=== PATIENT | female | born 1975 | race Caucasian/White ===

== ENCOUNTER → 2020-08-26 | Outpatient (CLI) | payer OTHER ==
[~2020-08-26] MED LIST: ALBU17IN2 INH; ALBU17IN2 PO; ALLE10TA12 PO; CELE20TA PO; EFFE75CA2 PO; PEPC1TAB5 PO; PROHANCE 279.3MG/ML 15ML VIAL As Ordered ONE; PROHANCE 279.3MG/ML 5ML VIAL As Ordered ONE
--- NOTE | 2020-08-29 09:20 | REP ---
INDICATION: ABNORMAL FINDING ON DX IMAGING OF LIVER AND BILIARY TRACT. Increasing liver lesion. Compare ultrasound [facility]. COMPARISON: Comparison sonography [facility] dated January 26, 2019 showed a 2.5 cm hypervascular lesion in the right lobe of the liver consistent with a hemangioma.. TECHNIQUE: Axial and coronal images are acquired. Sequences include spin echo, fast spin echo, diffusion, gradient echo, in and out of phase, and dynamically acquired sequential postcontrast images. Gadolinium enhancement dose is 18 mL of intravenous ProHance. FINDINGS: Initial precontrast T2 weighted scans demonstrate a central right lobe T2 hyperintense hepatic mass lesion measuring 2.7 cm craniocaudal by 2.4 cm right to left by 2.0 cm anteroposterior. This corresponds to the hyperechoic lesion identified on the ultrasound from January 26, 2019. It does not appear to be changed in size. This lesion shows T1 hypointensity. On dynamically acquired sequential postcontrast enhanced images there is a typical pattern of discontinuous early peripheral enhancement in the lesion. The lesion fills in with contrast enhancement on later images. There is also a tiny subcentimeter T2 hyperintense lesion in the right lobe anteriorly 7 mm in diameter and consistent with a cyst. This does not enhance. No other focal liver lesion is seen. No splenic, pancreatic, or renal lesion is observed. Normal adrenal glands are observed. There is no evidence of cholelithiasis. IMPRESSION: Stable benign right hepatic hemangioma. Tiny right lobe hepatic cyst. Otherwise negative. <Electronically signed by Hansel King > 08/29/20 [id number]
== END ==
LOC: M RAD 12:32
PROVIDERS: ATTEND Internal Medicine Gastroenterology
DX: R93.2 Abnormal findings on diagnostic imaging of liver and biliary tract (principal)
CPT/HCPCS: 74183; A9576

== ENCOUNTER → 2020-09-10 | Outpatient (CLI) | payer OTHER ==
[~2020-09-10] MED LIST changes: -PROHANCE 279.3MG/ML 15ML VIAL As Ordered ONE; -PROHANCE 279.3MG/ML 5ML VIAL As Ordered ONE
--- NOTE | 2020-09-10 12:07 | REP ---
INDICATION: OTHER SPECIFIED DISEASES OF GALLBLADDER. COMPARISON: None. TECHNIQUE/RADIOTRACER AND DOSE: Radionuclide biliary scan followed by gallbladder ejection fraction. FINDINGS: After intravenous infusion of 6.1 mCi of technetium labeled mebrofenin imaging of the liver and biliary ducts is performed at 5 minutes intervals for 1 hour. There is gallbladder and common biliary duct labeling at 15 minutes. There is normal hepatic washout. Following this the patient is asked to ingest 8 oz of Ensure Enlive. After this an additional 60 minutes of dynamic imaging is performed at 2 minute intervals. At 60 minutes the ejection fraction is 60%. Normal ejection fraction is a value greater than 35%. IMPRESSION: There is no evidence of cystic duct or common biliary duct obstruction on the biliary scan. There is a normal gallbladder ejection fraction. <Electronically signed by Nathaniel Faust > 09/10/20 [id number]
== END ==
LOC: M RAD 07:49
PROVIDERS: ATTEND Internal Medicine Gastroenterology
DX: K82.8 Other specified diseases of gallbladder (principal)
CPT/HCPCS: 78227; A9537

== ENCOUNTER → 2020-10-26 | Outpatient (CLI) | payer OTHER ==
[~2020-10-26] MED LIST changes: +HYDR25TAB PO; +LORA-674 PO; +PANT40TA29 PO; +VENL37.598 PO
== END ==
LOC: M LABSMTC 10:21
PROVIDERS: ATTEND Anesthesiology
DX: Z01.812 Encounter for preprocedural laboratory examination (principal); Z20.822 Contact with and (suspected) exposure to COVID-19

== ENCOUNTER 2020-10-31 12:39 | Day surgery (SDC) | payer OTHER ==
[~2020-10-31] VITALS: Ht 175.3 cm; Wt 92.6 kg
[~2020-10-31 12:39] MED LIST changes: +NS 1,000 ML IV ONE
[2020-10-31] MEDS ORDERED: fentaNYL 100 MCG/2 ML INJECTION (J3010) As Ordered ONE (15:20)
[2020-10-31] MEDS ORDERED: propofoL 200 MG/20 ML VIAL As Ordered ONE (15:20)
[2020-10-31] MEDS ORDERED: LIDOCAINE 2% 100MG/5ML SDV (FOR ANES.) As Ordered ONE (15:20)
--- NOTE | 2020-10-31 15:37 | ROOR ---
Patient Name: Asha Brewer Procedure Date: 10/31/2020 3:15 PM Date of : 1975 Age: 45 Room: [facility] Gender: Female Note Status: Finalized Procedure: Upper GI endoscopy Indications: Dyspepsia, Nausea with vomiting Providers: Alonso MIKE MD Referring MD: Anna Kat Md Requesting Provider: Medicines: Monitored Anesthesia Care Complications: No immediate complications. Procedure: Pre-Anesthesia Assessment: - The heart rate, respiratory rate, oxygen saturations, blood pressure, adequacy of pulmonary ventilation, and response to care were monitored throughout the procedure. The Endoscope was introduced through the mouth, and advanced to the second part of duodenum. The upper GI endoscopy was accomplished without difficulty. The patient tolerated the procedure well. Findings: Very small (insignificant) Hiatal Hernia. The esophagus was normal. The stomach was normal. The examined duodenum was normal. Impression: - Normal esophagus. - Normal stomach. Very small (insignificant) Hiatal Hernia. - Normal examined duodenum. - No specimens collected. Recommendation: - Observe patient's clinical course. - Continue present medications. Procedure Code(s): --- Professional --- 01378, Esophagogastroduodenoscopy, flexible, transoral; diagnostic, including collection of specimen(s) by brushing or washing, when performed (separate procedure) Diagnosis Code(s): --- Professional --- R11.2, Nausea with vomiting, unspecified R10.13, Epigastric pain CPT copyright 2019 [employer]. All rights reserved. The codes documented in this report are preliminary and upon clinical reviewer review may be revised to meet current compliance requirements. Alonso Mike MD Alonso MIKE MD 10/31/2020 3:37:31 PM Electronically signed by Alonso MIKE MD Number of Addenda: 0 Note Initiated On: 10/31/2020 3:15 PM Estimated Blood Loss: Estimated blood loss: none.
[2020-10-31 15:55] VITALS: BP 137/88
== END 2020-10-31 16:02 | disposition home or self-care (01) ==
LOC: M OPP 12:39
PROVIDERS: ATTEND Internal Medicine Gastroenterology
DX: R10.13 Epigastric pain (principal); R11.2 Nausea with vomiting, unspecified; K44.9 Diaphragmatic hernia without obstruction or gangrene; I10 Essential (primary) hypertension; F41.9 Anxiety disorder, unspecified; F17.210 Nicotine dependence, cigarettes, uncomplicated; K27.9 Peptic ulcer, site unspecified, unspecified as acute or chronic, without hemorrhage or perforation; Z79.899 Other long term (current) drug therapy; Z80.3 Family history of malignant neoplasm of breast; Z80.0 Family history of malignant neoplasm of digestive organs; Z82.49 Family history of ischemic heart disease and other diseases of the circulatory system
CPT/HCPCS: 43235; J3010

== ENCOUNTER → 2023-11-12 | Outpatient (REF) ==
[~2023-11-12] MED LIST changes: +HYDR-3490 PO; -HYDR25TAB PO; +LORA-1041 PO; -LORA-674 PO; -NS 1,000 ML IV ONE
== END ==
LOC: M EMP 13:07
PROVIDERS: ATTEND Family Medicine
DX: Z01.89 Encounter for other specified special examinations (principal)

== ENCOUNTER → 2023-11-12 | Outpatient (CLI) | payer OTHER | LOC: M RAD 13:50 | PROVIDERS: ATTEND Registered Nurse | DX: R05.9 Cough, unspecified (principal); R07.9 Chest pain, unspecified ==

== ENCOUNTER → 2023-11-12 | Outpatient (REF) | LOC: M EMP 13:09 | PROVIDERS: ATTEND Family Medicine | DX: Z56.9 Unspecified problems related to employment (principal) ==

== ENCOUNTER → 2024-04-11 | Outpatient (REF) | payer OTHER | LOC: M LAB REF 13:10 | PROVIDERS: ATTEND Physician Assistant | DX: Z12.4 Encounter for screening for malignant neoplasm of cervix (principal) ==

== ENCOUNTER → 2024-08-09 | Outpatient (CLI) | payer BC | LOC: M WHC 16:11 | PROVIDERS: ATTEND Physician Assistant | DX: Z12.31 Encounter for screening mammogram for malignant neoplasm of breast (principal); R92.333 Mammographic heterogeneous density, bilateral breasts ==